=== PATIENT | female | born 1980 | race Caucasian/White ===

== ENCOUNTER 2017-03-03 04:46 | Inpatient (IN) | payer OTHER ==
[2017-03-03 05:26] LABS: APPEARANCE,URINE CLEAR; BILIRUBIN,URINE NEGATIVE (NEGATIVE); GLUCOSE, URINE NEGATIVE (NEGATIVE); KETONES,URINE NEGATIVE (NEGATIVE); LEUKOCYTE ESTERASE,URINE NEGATIVE (NEGATIVE); NITRITE,URINE NEGATIVE (NEGATIVE); PROTEIN,URINE NEGATIVE (NEGATIVE); URINE SPECIFIC GRAVITY 1.002; UROBILINOGEN,URINE NEGATIVE mg/dL (<2.0)
[2017-03-03] MEDS ORDERED: RINGERS SOLUTION,LACTATED 1,000 ML IV ONE (05:30)
[2017-03-03] MEDS ORDERED: RINGERS SOLUTION,LACTATED 1,000 ML IV PRN (05:30)
[2017-03-03 05:41] LABS: URINE BARBITURATES SCREEN NEGATIVE; URINE METHADONE SCREEN NEGATIVE; URINE OPIATES LOW NEGATIVE; URINE PHENCYCLIDINE SCREEN NEGATIVE
[2017-03-03 05:55] LABS: ABSOLUTE BASOPHILS # (AUTO) 0.1 10^3/uL (0.0-0.2); ABSOLUTE EOSINOPHILS # (AUTO) 0.1 10^3/uL (0.0-0.6); ABSOLUTE LYMPHOCYTES (AUTO) 1.8 10^3/uL (0.5-4.7); ABSOLUTE MONOCYTES (AUTO) 1.4 10^3/uL (0.1-1.4); ABSOLUTE NEUT (AUTO) 13.2 10^3/uL (1.7-8.2); BASOPHILS % (AUTO) 0.6 % (0-2); EOSINOPHILS % (AUTO) 0.8 % (0-6); HEMATOCRIT 37.3 % (36.0-47.0); HEMOGLOBIN 12.9 g/dL (12.0-15.5); HGB HCT DIFFERENCE 1.4; LYMPHOCYTES % (AUTO) 10.8 % (13-45); MEAN CORPUSCULAR HEMOGLOBIN 29.2 pg (27.0-33.4); MEAN CORPUSCULAR HGB CONC 34.7 g/dL (32.0-36.0); MEAN CORPUSCULAR VOLUME 84 fl (80-97); MONOCYTES % (AUTO) 8.2 % (3-13); RED BLOOD COUNT 4.43 10^6/uL (3.72-5.28); RED CELL DISTRIBUTION WIDTH 13.5 % (11.5-14.0); SEGMENTED NEUTROPHILS % (AUTO) 79.6 % (42-78); WHITE BLOOD COUNT 16.6 10^3/uL (4.0-10.5)
[2017-03-03] MEDS ORDERED: OXYTOCIN/NORMAL SALINE 1,000 ML IV PRN ×3 (09:44→20:56)
[2017-03-03] MEDS ORDERED: OXYTOCIN/NORMAL SALINE 0 UNIT/0 ML RTUINJ ONE (09:59)
--- NOTE | 2017-03-03 11:57 | Admission Physical ---
Datetime Report Generated by CPN: 03/03/2017 11:56 CURRENT ADMISSION Hx Assessment: The History has been Reviewed and is Current Chief Complaint: Suspected Ruptured Membranes Admit Plan: Admit to Unit ALLERGIES Medication Allergies: Sulfa (Sulfonamide Antibiotics)/SV/crawling sensat (04/03/2016) OBSTETRICAL HISTORY EDC: 03/03/2017 00:00 : 2 Para: 1 Term: 0 : 1 SAB: 0 IAB: 0 Ectopic: 0 Livin Cesareans: 0 VBACs: 0 Multiple Births: 0 Gestational Diabetes: No Rh Sensitization: No Incompetent Cervix: No TANG: No Infertility: No Uterine Anomaly: No IUGR: No Hx Previous C/S: No Macrosomia: No Hx Loss/Stillborn: No PIH: Yes Hx : No Placenta Previa/Abruption: No Depression/PP Depression: Yes PTL/PROM: No Post Hemorrhage: No Current Procedures: Ultrasound; NST Obstetrical History Comments: G1-2000 female @ 35 wks-4lbs 15 oz G2-Current MEDICAL HISTORY Diabetes: No Other Medical Diseases: Yes Medical History Comments: Hx: Depression-no meds; heart murmur with mild systolic click; Hx of Pre-E in first ; PHYSICAL EXAM General: Normal HEENT: Normal Neurologic: Normal Thyroid: Normal Heart: Normal Lungs: Normal Breast: Normal Back: Normal Abdomen: Normal Genitourinary Exam: Normal Extremities: Normal DTRs: Normal Pelvic Type: Adequate Physical Exam Comments: SVE was 350/-2 yesterday in clinic clear fluid since 0200 FETUS A Monitoring: External US FHR Category: Category I Presentation: Vertex Admit Comment: admit-offered pit augmentation if pt desires pain management per pt desire INFORMED CONSENT Signature: with User ID: [email or web address]
--- NOTE | 2017-03-03 12:47 | L&D Progress Notes ---
PROGRESS NOTES Datetime Report Generated by CPN: 03/03/2017 12:46 PROGRESS NOTE Impression: Rupture of Membranes Plan: Augmentation Vital Signs : Reviewed Comment: pit at 12 mu...cont augmentation FETUS A FHR Category: Category I Presentation: Vertex SIGNATURE SIGNATURE: [id number] Signature: with User ID: [email or web address]
[2017-03-03] MEDS ORDERED: ACETAMINOPHEN 325 MG TABLET PO ONE (13:21)
[2017-03-03] MEDS ORDERED: ACETAMINOPHEN 325 MG TABLET ONE (13:26)
[2017-03-03] MEDS ORDERED: AMPICILLIN SOD/SULBACTAM 3 GM VIAL ONE ×3 (13:26→19:03)
[2017-03-03] MEDS ORDERED: AMPICILLIN SOD/SULBACTAM 1.5 GM VIAL IV SCH (13:30)
[2017-03-03] MEDS ORDERED: FENTANYL CITRATE INJ/PF 100 MCG/2 ML AMPUL ONE (13:42)
[2017-03-03] MEDS ORDERED: MISOPROSTOL 0.2 MG TABLET ONE (13:42)
[2017-03-03] MEDS ORDERED: EPHEDRINE SULFATE INJ 50 MG/1 ML AMPULE ONE (13:42)
[2017-03-03] MEDS ORDERED: LIDOCAINE 1% INJ-PF (10 MG/ML) 30 ML SDV ONE (13:43)
[2017-03-03] MEDS ORDERED: PHENYLEPHRINE HCL INJ/PF 10 MG/1 ML SDV ONE (13:43)
[2017-03-03] MEDS ORDERED: BUPIVACAINE HCL 0.25 % INJ/PF (2.5 MG/1 ML) 30 ML VIAL ONE (13:43)
[2017-03-03] MEDS ORDERED: FENTANYL/BUPIVACAINE/NS/PF 200 MCG/100 ML RTUINJ EPI ONE (13:43)
--- NOTE | 2017-03-03 14:49 | L&D Progress Notes ---
PROGRESS NOTES Datetime Report Generated by CPN: 03/03/2017 14:49 PROGRESS NOTE Impression: Chorioamnionitis Plan Other: on IV unasyn now Informed Consent Obtained: Vaginal Delivery; Section Delivery; Vacuum/Forceps Assist; Risks, Benefits and Alternatives Discussed Comment: Pt spiked temp and developed tachycardia...started iv unasyn, tyelenol. Noemy Foster RN checked after epidural and making cervical change. Discussed r/b/a of if needed or vac assist. FETUS A FHR Comments: tachycarida FETUS C SIGNATURE: [id number] Signature: with User ID: [email or web address]
--- NOTE | 2017-03-03 16:34 | L&D Progress Notes ---
PROGRESS NOTES Datetime Report Generated by CPN: 03/03/2017 16:34 PROGRESS NOTE Impression: Non-reassuring Heart Rate Informed Consent Obtained: Section Delivery Comment: Pt now 7/100/0 to + 1 but straight op. Discussed given r/b/a of and pt consents. FETUS A Monitoring: External US FETUS C SIGNATURE: [id number] Signature: with User ID: [email or web address]
[2017-03-03] MEDS ORDERED: LIDOCAINE 2%/EPINEPHRINE INJ 20 ML VIAL ONE (16:37)
[2017-03-03] MEDS ORDERED: CITRIC ACID/SODIUM CITRATE ORAL SOLN 15 ML UDCUP ONE (16:37)
[2017-03-03] MEDS ORDERED: CEFAZOLIN 2 GM/D5W RTU 2 GM/50 ML RTUPB IV ONE (16:38)
[2017-03-03] MEDS ORDERED: SODIUM BICARBONATE 8.4% INJ 50 MEQ/50 ML DISP.SYRIN ONE (16:38)
[2017-03-03] MEDS ORDERED: ONDANSETRON HCL INJ/PF 4 MG/2 ML SDV ONE (16:46)
[2017-03-03] MEDS ORDERED: OXYTOCIN/NORMAL SALINE 20 UNIT/1,000 ML RTUINJ ONE ×2 (16:46→16:52)
[2017-03-03] MEDS ORDERED: MIDAZOLAM 2 MG/2 ML INJ ONE (16:46)
[2017-03-03] MEDS ORDERED: OXYTOCIN 10 UNIT/ML VIAL ONE (16:46)
[2017-03-03] MEDS ORDERED: METHYLERGONOVINE MALEATE INJ/PF 0.2 MG/1 ML AMPULE ONE (16:52)
[2017-03-03] MEDS ORDERED: MEPERIDINE HCL/PF INJ 25 MG/1 ML DISP.SYRIN ONE (17:07)
[2017-03-03] MEDS ORDERED: IBUPROFEN 800 MG TABLET ONE (17:20)
[2017-03-03] MEDS ORDERED: NALBUPHINE HCL INJ 10 MG/1 ML AMPULE ONE (17:22)
[2017-03-03] MEDS ORDERED: DIBUCAINE 1% OINTMENT 28 GM TP PRN ×2 (19:13→20:56)
[2017-03-03] MEDS ORDERED: BENZOCAINE/MENTHOL AEROSOL SPRAY 56 ML TOP PRN ×2 (19:13→20:56)
[2017-03-03] MEDS ORDERED: DIPH/PERTUSS(ACELL)/TETANUS VAC/PF 0.5 ML SYR (>=10YO) IM PRN ×2 (19:13→20:56)
[2017-03-03] MEDS ORDERED: ZOLPIDEM TARTRATE 5 MG TABLET PO PRN ×2 (19:13→20:56)
[2017-03-03] MEDS ORDERED: MEASLES,MUMPS&RUBELLA VACC/PF 0.5 ML VIAL SUBCUT PRN ×2 (19:13→20:56)
[2017-03-03] MEDS ORDERED: ACETAMINOPHEN WITH CODEINE #3 TABLET PO PRN ×4 (19:13→20:56)
--- NOTE | 2017-03-03 20:18 | Admission Physical ---
Datetime Report Generated by CPN: 03/03/2017 20:17 CURRENT ADMISSION Hx Assessment: The History has been Reviewed and is Current Chief Complaint: Suspected Ruptured Membranes Admit Plan: Admit to Unit ALLERGIES Medication Allergies: Yes Medication Allergies: Sulfa (Sulfonamide Antibiotics)/SV/crawling sensat (04/03/2016) Latex: No Latex Allergies OBSTETRICAL HISTORY EDC: 03/03/2017 00:00 : 2 Para: 1 Term: 0 : 1 SAB: 0 IAB: 0 Ectopic: 0 Livin Cesareans: 0 VBACs: 0 Multiple Births: 0 Gestational Diabetes: No Rh Sensitization: No Incompetent Cervix: No TANG: No Infertility: No ART Treatment: No Uterine Anomaly: No IUGR: No Hx Previous C/S: No Macrosomia: No Hx Loss/Stillborn: No PIH: Yes Hx : No Placenta Previa/Abruption: No Depression/PP Depression: Yes PTL/PROM: No Post Hemorrhage: No Current Procedures: Ultrasound; NST Obstetrical History Comments: G1-2000 female @ 35 wks-4lbs 15 oz G2-Current SEE RECORDS Alcohol: No Marijuana : No Cocaine: No Other Illicit Drugs: No Cigarettes: Former Smoker. [id number] MEDICAL HISTORY Diabetes: No Blood Transfusion: No Pulmonary Disease (Asthma, TB): No Breast Disease: No Hypertension: No Cap Cutter Surgery: No Heart Disease: No Hosp/Surgery: No Autoimmune Disorder: No Anesthetic Complications: No Kidney Disease: No Abnormal Pap Smear: No Neuro/Epilepsy: No Psychiatric Disorders: No Other Medical Diseases: Yes Hepatitis/Liver Disease: No Significant Family History: No Varicosities/Phlebitis: No Trauma/Violence : No Thyroid Dysfunction: No Medical History Comments: Hx: Depression-no meds; heart murmur with mild systolic click; Hx of Pre-E in first ; INFECTIOUS HISTORY Gonorrhea: No Genital Herpes: No Chlamydia: No Tuberculosis: No Syphilis: No Hepatitis: No HIV/AIDS Exposure: No Rash or Viral Illness: No HPV: No PHYSICAL EXAM General: Normal HEENT: Normal Neurologic: Normal Thyroid: Normal Heart: Normal Lungs: Normal Breast: Normal Back: Normal Abdomen: Normal Genitourinary Exam: Normal Extremities: Normal DTRs: Normal Pelvic Type: Adequate Physical Exam Comments: SVE was 3/50/-2 yesterday in clinic clear fluid since 0200 FETUS A EGA: 40.0 Monitoring: External US FHR Category: Category I Presentation: Vertex Admit Comment: admit-offered pit augmentation if pt desires pain management per pt desire PLANS FOR LABOR AND DELIVERY Labor and Delivery: None Pain Management: Natural; Epidural Feeding Preference: Breast Benefit of Breast Feed Discussed: Yes Circumcision: N/A INFORMED CONSENT Informed Consent Obtained: Section Delivery Informed Consent Obtained: Vaginal Delivery; Section Delivery; Vacuum/Forceps Assist; Risks, Benefits and Alternatives Discussed Signature: with User ID: [email or web address]
[2017-03-03] MEDS ORDERED: IBUPROFEN 800 MG TABLET PO SCH (22:00)
[2017-03-03] MEDS: IBUPROFEN 800 MG TABLET PO SCH (22:53)
[2017-03-04] MEDS ORDERED: MISOPROSTOL 0.2 MG TABLET PR ONE (00:45)
[2017-03-04] MEDS ORDERED: METHYLERGONOVINE MALEATE INJ/PF 0.2 MG/1 ML AMPULE IM ONE (00:45)
[2017-03-04] MEDS ORDERED: AMPICILLIN SOD/SULBACTAM 3 GM VIAL IV PRN (01:00)
[2017-03-04] MEDS: IBUPROFEN 800 MG TABLET PO SCH ×4 (03:37→21:11)
[2017-03-04] MEDS ORDERED: PRENATAL VITAMIN W-O CA NO5/FE FUMARATE/FA CAPSULE PO SCH (10:00)
[2017-03-04] MEDS: DOCUSATE SODIUM 100 MG CAPSULE PO SCH ×2 (10:00→18:00)
[2017-03-04] MEDS ORDERED: FERROUS SULFATE 325 MG TABLET PO SCH (10:00)
[2017-03-04] MEDS: SENNOSIDES/DOCUSATE 8.6-50 MG 1 EACH TABLET PO SCH (10:00)
[2017-03-04] MEDS: PRENATAL VITAMIN W-O CA NO5/FE FUMARATE/FA CAPSULE PO SCH (10:00)
[2017-03-04] MEDS ORDERED: DOCUSATE SODIUM 100 MG CAPSULE PO SCH (10:00)
[2017-03-04] MEDS: FERROUS SULFATE 325 MG TABLET PO SCH ×2 (10:00→18:00)
[2017-03-04] MEDS ORDERED: SENNOSIDES/DOCUSATE 8.6-50 MG 1 EACH TABLET PO SCH (10:00)
[2017-03-04] MEDS: AMPICILLIN SODIUM/SULBACTAM NA 3 GM in NORMAL SALINE 100 ML IV SCH ×2 (12:00→18:00)
[2017-03-05] MEDS: AMPICILLIN SODIUM/SULBACTAM NA 3 GM in NORMAL SALINE 100 ML IV SCH (00:22)
[2017-03-05] MEDS: IBUPROFEN 800 MG TABLET PO SCH ×3 (05:58→21:28)
[2017-03-05 07:14] LABS: ABSOLUTE BASOPHILS # (AUTO) 0.1 10^3/uL (0.0-0.2); ABSOLUTE EOSINOPHILS # (AUTO) 0.2 10^3/uL (0.0-0.6); ABSOLUTE LYMPHOCYTES (AUTO) 1.5 10^3/uL (0.5-4.7); ABSOLUTE MONOCYTES (AUTO) 0.7 10^3/uL (0.1-1.4); ABSOLUTE NEUT (AUTO) 16.8 10^3/uL (1.7-8.2); BASOPHILS % (AUTO) 0.3 % (0-2); EOSINOPHILS % (AUTO) 1.1 % (0-6); HEMATOCRIT 26.1 % (36.0-47.0); HGB HCT DIFFERENCE 0.6; LYMPHOCYTES % (AUTO) 7.7 % (13-45); MEAN CORPUSCULAR HEMOGLOBIN 29.5 pg (27.0-33.4); MEAN CORPUSCULAR HGB CONC 34.2 g/dL (32.0-36.0); MEAN CORPUSCULAR VOLUME 86 fl (80-97); MONOCYTES % (AUTO) 3.7 % (3-13); RED BLOOD COUNT 3.02 10^6/uL (3.72-5.28); RED CELL DISTRIBUTION WIDTH 14.1 % (11.5-14.0); SEGMENTED NEUTROPHILS % (AUTO) 87.2 % (42-78); WHITE BLOOD COUNT 19.3 10^3/uL (4.0-10.5)
[2017-03-05 07:48] LABS: HEMOGLOBIN 8.9 g/dL (12.0-15.5)
[2017-03-05 08:00] LABS: HEMATOCRIT 29.8 % (36.0-47.0); HGB HCT DIFFERENCE -0.4; MEAN CORPUSCULAR HEMOGLOBIN 28.6 pg (27.0-33.4); MEAN CORPUSCULAR HGB CONC 32.8 g/dL (32.0-36.0); MEAN CORPUSCULAR VOLUME 87 fl (80-97); RED BLOOD COUNT 3.41 10^6/uL (3.72-5.28); RED CELL DISTRIBUTION WIDTH 13.7 % (11.5-14.0); WHITE BLOOD COUNT 28.9 10^3/uL (4.0-10.5)
[2017-03-05] MEDS: DOCUSATE SODIUM 100 MG CAPSULE PO SCH ×2 (09:48→17:53)
[2017-03-05] MEDS: FERROUS SULFATE 325 MG TABLET PO SCH ×2 (09:49→17:53)
[2017-03-05] MEDS: PRENATAL VITAMIN W-O CA NO5/FE FUMARATE/FA CAPSULE PO SCH (09:49)
[2017-03-05] MEDS: SENNOSIDES/DOCUSATE 8.6-50 MG 1 EACH TABLET PO SCH (09:50)
--- NOTE | 2017-03-05 14:14 | PDOC PROGRESS REPORT ---
Subjective-OB Subjective: Post Delivery Day: 36 year old. Denies any needs at this time Sitting on side of bed, pain in abd improved, scant lochia, breast feeding, baby has bili later this afternoon, ambulating, family at BS, holding baby Physical Exam (OB) Vital Signs: Temp Pulse Resp BP Pulse Ox 98.2 F 80 15 122/70 100 03/05/17 11:44 03/05/17 11:44 03/05/17 11:44 03/05/17 11:44 03/05/17 11:44 Intake & Output 03/04/17 03/05/17 03/06/17 06:59 06:59 06:59 Intake Total 100 240 Balance 100 240 - Lochia Lochia Amount: Small 10-25 ml Lochia Color: Rubra/Red - Abdomen Description: Tender, Soft, Round Hernia Present: No Fundal Description: Firm, Midline Fundal Height: u/u - u/2 Objective-Diagnostic Laboratory: 03/05/17 07:03 03/05/17 07:03 WBC 19.3 H RBC 3.02 L Hgb 8.9 L D Hct 26.1 L MCV 86 MCH 29.5 MCHC 34.2 RDW 14.1 H Plt Count 239 Seg Neutrophils % 87.2 H Lymphocytes % 7.7 L Monocytes % 3.7 Eosinophils % 1.1 Basophils % 0.3 Absolute Neutrophils 16.8 H Absolute Lymphocytes 1.5 Absolute Monocytes 0.7 Absolute Eosinophils 0.2 Absolute Basophils 0.1 Assessment and Plan(PN) - Assessment and Plan (1) Vacuum extraction, delivered, current hospitalization Is this a current diagnosis for this admission?: Yes (2) Chorioamnionitis Qualifiers: Fetus number: single or unspecified fetus Is this a current diagnosis for this admission?: Yes (3) Advanced maternal age (AMA) in Is this a current diagnosis for this admission?: Yes - Time Spent with Patient Time with patient: Less than 15 minutes Medications reviewed and adjusted accordingly: Yes - Disposition Anticipated Discharge: Home Within: within 24 hours
[2017-03-05 14:20] LABS: HEMOGLOBIN 9.8 g/dL (12.0-15.5)
[2017-03-06] MEDS: IBUPROFEN 800 MG TABLET PO SCH (06:22)
[2017-03-06 08:05] LABS: HEMATOCRIT 25.9 % (36.0-47.0); HEMOGLOBIN 8.4 g/dL (12.0-15.5); HGB HCT DIFFERENCE -0.7; MEAN CORPUSCULAR HEMOGLOBIN 28.8 pg (27.0-33.4); MEAN CORPUSCULAR HGB CONC 32.6 g/dL (32.0-36.0); MEAN CORPUSCULAR VOLUME 88 fl (80-97); RED BLOOD COUNT 2.93 10^6/uL (3.72-5.28); RED CELL DISTRIBUTION WIDTH 14.1 % (11.5-14.0); WHITE BLOOD COUNT 12.9 10^3/uL (4.0-10.5)
--- NOTE | 2017-03-06 10:19 | PDOC PROGRESS REPORT ---
Subjective-OB Subjective: Post Delivery Day: 36 year old. Denies any needs at this time. Ready to go home. Physical Exam (OB) Vital Signs: Temp Pulse Resp BP Pulse Ox 98.4 F 67 18 123/79 100 03/06/17 07:22 03/06/17 07:22 03/06/17 07:22 03/06/17 07:22 03/06/17 07:22 Intake & Output 03/05/17 03/06/17 03/07/17 06:59 06:59 06:59 Intake Total 240 Balance 240 - Lochia Lochia Amount: Scant < 10 ml Lochia Color: Rubra/Red - Abdomen Description: Soft, Round Hernia Present: No Bowel Sounds: Normoactive Flatus Presence: Present Stool: Yes Fundal Description: Firm, Midline Fundal Height: u/u - u/2 Objective-Diagnostic Laboratory: 03/06/17 07:19 03/04/17 03/05/17 03/06/17 06:44 07:03 07:19 WBC 28.9 H 19.3 H 12.9 H RBC 3.41 L 3.02 L 2.93 L Hgb 9.8 L D 8.9 L 8.4 L Hct 29.8 L 26.1 L 25.9 L MCV 87 86 88 MCH 28.6 29.5 28.8 MCHC 32.8 34.2 32.6 RDW 13.7 14.1 H 14.1 H Plt Count 233 239 260 Seg Neutrophils % 87.2 H Lymphocytes % 7.7 L Monocytes % 3.7 Eosinophils % 1.1 Basophils % 0.3 Absolute Neutrophils 16.8 H Absolute Lymphocytes 1.5 Absolute Monocytes 0.7 Absolute Eosinophils 0.2 Absolute Basophils 0.1 Assessment and Plan(PN) - Time Spent with Patient Medications reviewed and adjusted accordingly: Yes - Disposition Anticipated Discharge: Home
--- NOTE | 2017-03-06 10:30 | PDOC DISCHARGE SUMMARY ---
Final Diagnosis Discharge Date: 03/06/17 - Final Diagnosis (1) Advanced maternal age (AMA) in Is this a current diagnosis for this admission?: Yes (2) Anemia, posthemorrhagic, acute Is this a current diagnosis for this admission?: Yes (3) Chorioamnionitis Is this a current diagnosis for this admission?: Yes (4) Vacuum extraction, delivered, current hospitalization Is this a current diagnosis for this admission?: Yes Discharge Data - Discharge Medication Home Medications: Ferrous Sulfate [Feosol 325 mg Tablet] 325 mg PO BID #60 tablet 03/06/17 Ibuprofen [Motrin 800 mg Tablet] 800 mg PO Q8 #20 tablet 03/06/17 Gestational Age: 490.0 wks Reason(s) for Admission: PROM Intrapartum Procedure(s): Spontaneous Vaginal Delivery - Data Baby 1 Female at 1 minute: 8 at 5 minutes: 8 Weight: 3.175 kg Home with Mother: Yes Complications: No - Diagnosis Test Laboratory: Temp Pulse Resp BP Pulse Ox 98.4 F 67 18 123/79 100 03/06/17 07:22 03/06/17 07:22 03/06/17 07:22 03/06/17 07:22 03/06/17 07:22 03/03/17 03/03/17 03/04/17 05:00 05:45 06:44 RBC 4.43 3.41 L Hgb 12.9 9.8 L D Hct 37.3 29.8 L Urine Opiates Screen NEGATIVE 03/05/17 03/06/17 07:03 07:19 RBC 3.02 L 2.93 L Hgb 8.9 L 8.4 L Hct 26.1 L 25.9 L Urine Opiates Screen - Discharge information/Instructions Discharge Activity: Activity As Tolerated, Balance Activity w/Rest, Pelvic Rest , Slowly Increase Activity, No tub bath Discharge Diet: Regular Disposition: HOME, SELF-CARE Follow up with: [facility] in: 4, Weeks
[2017-03-06] MEDS: DOCUSATE SODIUM 100 MG CAPSULE PO SCH (10:41)
[2017-03-06] MEDS: PRENATAL VITAMIN W-O CA NO5/FE FUMARATE/FA CAPSULE PO SCH (10:41)
[2017-03-06] MEDS: FERROUS SULFATE 325 MG TABLET PO SCH (10:42)
[2017-03-06] MEDS: SENNOSIDES/DOCUSATE 8.6-50 MG 1 EACH TABLET PO SCH (10:42)
[2017-03-06 11:03] VITALS: BP 129/75
--- NOTE | 2017-03-12 13:57 | Delivery Summary ---
Del Sum A-C Datetime Report Generated by CPN: 03/12/2017 13:57 DELIVERY PERSONNEL DELIVERY PERSONNEL: [phone] DELIVERY PERSONNEL: [phone] DELIVERY PERSONNEL: [phone] DELIVERY PERSONNEL: [phone] Delivery Doctor:: Rani Burnette MD Labor and Delivery Nurse:: MADELEINE Grey Labor and Delivery Nurse:: June Stanford RN Neonatal Nurse Practitioner:: MENA Alicia Nursery Nurse:: Marielena Lange RN MATERNAL INFORMATION Delivery Anesthesia: Epidural Medications After Delivery: Pitocin Bolus-Please Comment; Pitocin Drip 20 Units/1000ml NSS; Other-Please Comment Meds After Delivery Comment: Cytotec 1000mcg GA given by provider Estimated Blood Loss (ml): 250 Maternal Complications: Chorioamnionitis; Maternal Fever LABOR SUMMARY EDC: 03/03/2017 00:00 No. Babies in Womb: 1 Attempted: No Labor Anesthesia: Epidural LABOR INFORMATION Reason for Induction: Not Applicable Complete Dilatation: 03/03/2017 16:45 Oxytocin: Augmentation Group B Beta Strep: Negative Steroids Given: None Reason Steroids Not Administered: Not Applicable MEMBRANES Membranes Rupture Method: Spontaneous Rupture of Membranes: 03/03/2017 02:00 Length of Rupture (hr): 15.05 Amniotic Fluid Color: Clear Amniotic Fluid Amount: Small Amniotic Fluid Odor: Normal STAGES OF LABOR Stage 2 hr: 0 Stage 2 min: 18 Stage 3 hr: 0 Stage 3 min: 3 VAGINAL DELIVERY Episiotomy: None Laceration Extension: N/A Laceration Type: None Laceration Repair: Not Applicable Sharps Count Correct: N/A CSECTION DELIVERY Primary Indication: N/A Secondary Indication: N/A CSection Incidence: N/A Labor: N/A Elective: N/A CSection Incision: N/A BABY A INFORMATION Delivery Date/Time: 03/03/2017 17:03 Method of Delivery: Vaginal Method of Delivery: Vaginal Born in Route : No : N/A Forceps: N/A Vacuum Extraction: Successful ASSISTED DELIVERY BABY A Indication for Assisted Delivery: Non-reassuring FHTs Catheter Prior to Procedure: Yes Station Vacuum/Forcep Apply: +3 Position Vacuum/Forcep Apply: OA Vacuum Number of Pulls: 2 Vacuum Number of PopOffs: 0 Vacuum Maximum Pressure Obtained: 550 Reduce Pressure btwn Ctx: No Vacuum Outreach Liaison: Ki[place] Total Time Vacuum Applied: 2 minutes PRESENTATION/POSITION BABY A Presentation: Cephalic Presentation: Cephalic Cephalic Presentation: Vertex Vertex Position: OA Breech Presentation: N/A PLACENTA INFORMATION BABY A Placenta Delivery Time : 03/03/2017 17:06 Placenta Method of Delivery: Spontaneous Placenta Status: Delivered SCORES BABY A Heart Rate 1 min: >100 bpm Resp Effort 1 min: Good Cry Reflex Irritability 1 min: Cough or Sneeze or Pulls Away Muscle Tone 1 min: Active Motion Color 1 min: Blue/Pale SCORE 1 MIN: 8 Heart Rate 5 min: >100 bpm Resp Effort 5 min: Good Cry Reflex Irritability 5 min: Cough or Sneeze or Pulls Away Muscle Tone 5 min: Active Motion Color 5 min: Blue/Pale SCORE 5 MIN: 8 INFORMATION BABY A Gestational Age at Delivery: 40.0 Gestational Status: Full Term- 39- 40.6 Weeks Outcome : Liveborn Condition : Stable Sex: Female Sex: Female IDENTIFICATION BABY A Verification Date/Time: 03/03/2017 17:43 ID Band Number: [id number] Mother's Name Verified: Yes Infant RN Verifying : D Bellavance RNC/A Stanford RN WEIGHT/LENGTH BABY A Infant Birthweight (gm): 3170 Infant Weight (lb): 7 Infant Weight (oz): 0 Infant Length (in): 19.75 Infant Length (cm): 50.17 CORD INFORMATION BABY A No. Cord Vessels: 3 Nuchal Cord : Around Neck x1, Loose Cord Blood Taken: Yes-For Eval (Mom's Blood Type - or O+) Suction: Mouth; Nose ASSESSMENT BABY A Infant Complications: Extended Tachycardia; Multiple Variable Decels; Meconium Infant Complications- Other: terminal meconium Physical Findings at Delivery: Caput Succedaneum; Bruising Infant Respirations: Appears Normal Skin to Skin: Yes Skin to Skin: No (Annotations: unable to place skin to skin secondary to condition) Skin to Skin: Yes Skin to Skin Time (min): 20 Skin to Skin Time (min): 0 Follow Up Rep/ALS Called : No Care By: Tyler Lange RNC Transferred To: [facility] BABY B INFORMATION : N/A SIGNATURES Signature: with User ID: [email or web address]
--- NOTE | 2017-03-30 13:46 | Delivery Summary ---
Del Sum A-C Datetime Report Generated by CPN: 03/30/2017 13:45 DELIVERY PERSONNEL DELIVERY PERSONNEL: [phone] Delivery Doctor:: Rani Burnette MD Labor and Delivery Nurse:: MADELEINE Grey Labor and Delivery Nurse:: June Stanford RN Neonatal Nurse Practitioner:: MENA Alicia Nursery Nurse:: Marielena Lange RN MATERNAL INFORMATION Delivery Anesthesia: Epidural Medications After Delivery: Pitocin Bolus-Please Comment; Pitocin Drip 20 Units/1000ml NSS; Other-Please Comment Meds After Delivery Comment: Cytotec 1000mcg DE given by provider Estimated Blood Loss (ml): 250 Maternal Complications: Chorioamnionitis; Maternal Fever LABOR SUMMARY EDC: 03/03/2017 00:00 No. Babies in Womb: 1 Attempted: No Labor Anesthesia: Epidural LABOR INFORMATION Reason for Induction: Not Applicable Complete Dilatation: 03/03/2017 16:45 Oxytocin: Augmentation Group B Beta Strep: Negative Steroids Given: None Reason Steroids Not Administered: Not Applicable MEMBRANES Membranes Rupture Method: Spontaneous Rupture of Membranes: 03/03/2017 02:00 Length of Rupture (hr): 15.05 Amniotic Fluid Color: Clear Amniotic Fluid Amount: Small Amniotic Fluid Odor: Normal STAGES OF LABOR Stage 2 hr: 0 Stage 2 min: 18 Stage 3 hr: 0 Stage 3 min: 3 VAGINAL DELIVERY Episiotomy: None Laceration Extension: N/A Laceration Type: None Laceration Repair: Not Applicable Sharps Count Correct: N/A CSECTION DELIVERY Primary Indication: N/A Secondary Indication: N/A CSection Incidence: N/A Labor: N/A Elective: N/A CSection Incision: N/A BABY A INFORMATION Infant Delivery Date/Time: 03/03/2017 17:03 Method of Delivery: Vaginal Born in Route : No : N/A Forceps: N/A Vacuum Extraction: Successful ASSISTED DELIVERY BABY A Indication for Assisted Delivery: Non-reassuring FHTs Catheter Prior to Procedure: Yes Station Vacuum/Forcep Apply: +3 Position Vacuum/Forcep Apply: OA Vacuum Number of Pulls: 2 Vacuum Number of PopOffs: 0 Vacuum Maximum Pressure Obtained: 550 Reduce Pressure btwn Ctx: No Vacuum Ski Production Supervisor: Ki[place] Total Time Vacuum Applied: 2 minutes PRESENTATION/POSITION BABY A Presentation: Cephalic Cephalic Presentation: Vertex Vertex Position: OA Breech Presentation: N/A PLACENTA INFORMATION BABY A Placenta Delivery Time : 03/03/2017 17:06 Placenta Method of Delivery: Spontaneous Placenta Status: Delivered SCORES BABY A Heart Rate 1 min: >100 bpm Resp Effort 1 min: Good Cry Reflex Irritability 1 min: Cough or Sneeze or Pulls Away Muscle Tone 1 min: Active Motion Color 1 min: Blue/Pale SCORE 1 MIN: 8 Heart Rate 5 min: >100 bpm Resp Effort 5 min: Good Cry Reflex Irritability 5 min: Cough or Sneeze or Pulls Away Muscle Tone 5 min: Active Motion Color 5 min: Blue/Pale SCORE 5 MIN: 8 INFORMATION BABY A Gestational Age at Delivery: 40.0 Gestational Status: Full Term- 39- 40.6 Weeks Outcome : Liveborn Infant Condition : Stable Sex: Female IDENTIFICATION BABY A Verification Date/Time: 03/03/2017 17:43 ID Band Number: [id number] Mother's Name Verified: Yes Infant RN Verifying : D Bellavance RNC/A Stanford RN WEIGHT/LENGTH BABY A Birthweight (gm): 3170 Infant Weight (lb): 7 Infant Weight (oz): 0 Infant Length (in): 19.75 Infant Length (cm): 50.17 CORD INFORMATION BABY A No. Cord Vessels: 3 Nuchal Cord : Around Neck x1, Loose Cord Blood Taken: Yes-For Eval (Mom's Blood Type - or O+) Suction: Mouth; Nose ASSESSMENT BABY A Infant Complications: Extended Tachycardia; Multiple Variable Decels; Meconium Infant Complications- Other: terminal meconium Physical Findings at Delivery: Caput Succedaneum; Bruising Infant Respirations: Appears Normal Skin to Skin: Yes Skin to Skin Time (min): 20 Skip Hoist Operator/ALS Called : No Infant Care By: Tyler Lange RNAlejandra Transferred To: [facility] BABY B INFORMATION : N/A SIGNATURES Signature: with User ID: [email or web address]
== END 2017-03-06 11:28 | disposition home or self-care (01) | DRG 774 ==
LOC: LC 04:46 → EEVIPCON 05:31 → LR 05:31 → 2S 20:15
PROVIDERS: ADMIT Specialist; ATTEND Specialist
PROC: 10D07Z6 Extraction of Products of Conception, Vacuum, Via Natural or Artificial Opening (ICD-10-PCS; principal; 2017-03-03)
PROC: 4A1HXCZ Monitoring of Products of Conception, Cardiac Rate, External Approach (ICD-10-PCS; 2017-03-03)
DX: O41.1230 Chorioamnionitis, third trimester, not applicable or unspecified (principal); O75.2 Pyrexia during labor, not elsewhere classified; D62 Acute posthemorrhagic anemia; O99.02 Anemia complicating childbirth; O99.344 Other mental disorders complicating childbirth; O69.81X0 Labor and delivery complicated by cord around neck, without compression, not applicable or unspecified; F32.9 Major depressive disorder, single episode, unspecified; Z3A.40 40 weeks gestation of pregnancy; Z37.0 Single live birth; Z88.2 Allergy status to sulfonamides; Z87.891 Personal history of nicotine dependence
CPT/HCPCS: 36415; 80307; 81005; 85025; 85027; 86592; 86850; 86900; 86901; 94760; J0295; J0690; J2175; J2210; J2250; J2300; J2370; J2405; J2590; J3010; J3490

== ENCOUNTER → 2017-10-26 | Outpatient (CLI) | payer BC | LOC: LAB 12:19 → EEVIPCON 12:19 | PROVIDERS: ATTEND Obstetrics & Gynecology | DX: N91.2 Amenorrhea, unspecified (principal) | CPT/HCPCS: 36415; 84702 ==

== ENCOUNTER 2018-03-04 05:51 | Day surgery (SDC) | payer BC ==
[2018-02-26 12:45] LABS: HEMATOCRIT 43.1 % (36.0-47.0); HEMOGLOBIN 14.6 g/dL (12.0-15.5); MEAN CORPUSCULAR HEMOGLOBIN 29.5 pg (27.0-33.4); MEAN CORPUSCULAR HGB CONC 33.8 g/dL (32.0-36.0); MEAN CORPUSCULAR VOLUME 87 fl (80-97); PLATELET COUNT 258 10^3/uL (150-450); RED BLOOD COUNT 4.95 10^6/uL (3.72-5.28); RED CELL DISTRIBUTION WIDTH 12.7 % (11.5-14.0); WHITE BLOOD COUNT 3.5 10^3/uL (4.0-10.5)
[2018-02-26 12:46] LABS: APPEARANCE,URINE CLEAR; BILIRUBIN,URINE NEGATIVE (NEGATIVE); COLOR,URINE STRAW; GLUCOSE, URINE NEGATIVE (NEGATIVE); KETONES,URINE NEGATIVE (NEGATIVE); LEUKOCYTE ESTERASE,URINE NEGATIVE (NEGATIVE); NITRITE,URINE NEGATIVE (NEGATIVE); PROTEIN,URINE NEGATIVE (NEGATIVE); URINE SPECIFIC GRAVITY 1.002; UROBILINOGEN,URINE NEGATIVE mg/dL (<2.0)
[~2018-03-04 05:51] MED LIST: LACTATED RINGERS 1000 ML IV PRN
[2018-03-04] MEDS ORDERED: EPHEDRINE SULFATE INJ 50 MG/1 ML AMPULE ONE (07:00)
[2018-03-04] MEDS ORDERED: ONDANSETRON HCL INJ/PF 4 MG/2 ML SDV ONE ×2 (07:00→10:42)
[2018-03-04] MEDS ORDERED: HYDROMORPHONE HCL INJ/PF 2 MG/ML AMPULE ONE (07:00)
[2018-03-04] MEDS ORDERED: FENTANYL CITRATE INJ/PF 100 MCG/2 ML AMPUL ONE (07:00)
[2018-03-04] MEDS ORDERED: MIDAZOLAM 2 MG/2 ML INJ ONE (07:00)
[2018-03-04] MEDS ORDERED: PROPOFOL INJ 200 MG/20 ML VIAL IV ONE (07:01)
[2018-03-04] MEDS ORDERED: DEXAMETHASONE SOD PHOSPHATE INJ 4 MG/1 ML VIAL ONE (07:44)
[2018-03-04] MEDS ORDERED: ROCURONIUM BROMIDE INJ 50 MG/5 ML VIAL IV ONE (07:44)
[2018-03-04] MEDS ORDERED: GLYCOPYRROLATE INJ 0.4 MG/2 ML VIAL ONE (07:44)
[2018-03-04] MEDS ORDERED: NEOSTIGMINE METHYLSULFATE 10 MG/10 ML VIAL ONE (07:44)
[2018-03-04] MEDS ORDERED: MEPERIDINE HCL/PF INJ 25 MG/1 ML DISP.SYRIN IV PRN (07:47)
[2018-03-04] MEDS ORDERED: FENTANYL CITRATE INJ/PF 100 MCG/2 ML AMPUL IV PRN ×3 (07:47)
[2018-03-04] MEDS ORDERED: DIPHENHYDRAMINE HCL 50 MG/ML VIAL IV PRN (07:47)
[2018-03-04] MEDS ORDERED: PROMETHAZINE HCL INJ 25 MG/1 ML VIAL IV PRN (07:47)
[2018-03-04] MEDS ORDERED: KETOROLAC TROMETHAMINE INJ/PF 30 MG/1 ML SDV ONE (08:49)
[2018-03-04] MEDS: FENTANYL CITRATE INJ/PF 100 MCG/2 ML AMPUL ONE ×3 (08:49→08:59)
[2018-03-04] MEDS ORDERED: ACETAMINOPHEN 100 ML IV ONE (08:49)
[2018-03-04] MEDS ORDERED: MORPHINE SULFATE 10 MG/ML INJ IM PRN (08:55)
[2018-03-04] MEDS ORDERED: IBUPROFEN 800 MG TABLET PO PRN (08:55)
[2018-03-04] MEDS ORDERED: OXYCODONE-ACETAMINOPHEN 5-325 MG TABLET PO PRN ×2 (08:55→08:56)
[2018-03-04] MEDS ORDERED: HYDROCODONE/ACETAMINOPHEN 5-325 MG TABLET ONE (09:30)
[2018-03-04] MEDS ORDERED: HYDROCODONE/ACETAMINOPHEN 5-325 MG TABLET PO PRN ×2 (09:40)
--- NOTE | 2018-03-04 10:11 | OPERATIVE REPORT E ---
Operative Report NAME: CHRISTOPHER NUR : 1980 AGE: 37Y DATE OF SURGERY: 03/04/2018 ROOM: PREOPERATIVE DIAGNOSES: 1. Undesired fertility, abnormal uterine bleeding, menorrhagia. 2. Anemia. POSTOPERATIVE DIAGNOSES: 1. Undesired fertility, abnormal uterine bleeding, menorrhagia. 2. Anemia. OPERATION: Hysteroscope, dilation and curettage with Novasure and laparoscopic bilateral salpingectomy. SURGEON: KENISHA KNOWLES M.D. ANESTHESIA: Dr. Aleman with General. FINDINGS: The uterus had sounded to 8.5 cm with a cervical length of 2 cm, cervical width of 4.5 cm. Burn time of 2 minutes. Normal uterus, tubes and ovaries noted on laparoscopy. COMPLICATIONS: None. ESTIMATED BLOOD LOSS: 50 mL. SPECIMENS REMOVED: Endometrial curettings and bilateral fallopian tubes. PROCEDURE: The patient was taken to the operating room, prepared and draped in normal sterile fashion in the dorsal lithotomy position. Under sterile conditions, an in and out catheter was performed with approximately 20 mL of clear urine. The sterile speculum was placed into the vagina and the anterior lip of the cervix was grasped with a single-tooth tenaculum. The uterus was then sounded to the above findings. The cervix was then dilated to accommodate the hysteroscope. A Kevorkian curette was introduced first and a mild curettage was performed. This sample was passed off the field for pathology. The hysteroscope was then introduced and the endometrial cavity was inspected with no evidence of perforation. A Novasure device was then inserted with the above settings in place and the Novasure device was then fired without difficulty. This was then removed and the hysteroscope was reintroduced and a good armaan of the endometrial lining was noted at the end of this procedure. Instruments were removed and the Hulka clamp then replaced the single-tooth tenaculum for uterine manipulation. Gloves were changed and attention was turned to the upper portion of the case where an umbilical skin incision was made with the scalpel and a Veress needle was introduced. Peritoneal cavity placement was confirmed by free flow of sterile water through the Veress needle and an opening pressure of 1 mmHg with insufflation. The abdomen was insufflated with approximately 2 l of CO2 gas and the Veress needle was removed. The 5 mm trocar was then placed through this incision. The camera was introduced. The peritoneal cavity was inspected and the patient was placed in steep Trendelenburg. Under direct visualization, two more 5 mm ports were placed one on either lower quadrant. The left fallopian tube was then grasped with an atraumatic grasper and the LigaSure device was introduced the device was used to remove the left fallopian tube starting at the fimbriated end and working to the fundus of the uterus. The fallopian tube once it was freed was then removed through the trocar without difficulty. This procedure was repeated on the right fallopian tube without difficulty. After the right fallopian tube was then removed, a picture was taken of the uterus and ovaries to confirm sterilization. The lower trocars were then removed under direct visualization. The abdomen was deflated the umbilical trocar. The patient was taken out of Trendelenburg and this trocar was then removed. The three incisions were then closed with 4-0 Vicryl. The patient tolerated the procedure well. Sponge, lap and needle counts were correct x2 and the patient was taken to the recovery room in stable condition. DICTATING PHYSICIAN: KENISHA KNOWLES M.D. [id number] Y#: [id number] ID: [id number] JOB#: [id number] ACCT: [id number] cc:KNEISHA KNOWLES M.D. >
[2018-03-04] MEDS ORDERED: PROMETHAZINE HCL INJ 25 MG/1 ML VIAL ONE (11:14)
[2018-03-04] MEDS ORDERED: SCOPOLAMINE HYDROBROMIDE 1.5 MG PATCH.TD72 ONE (11:15)
[2018-03-04] MEDS ORDERED: DEXAMETHASONE SOD PHOS INJ 10 MG/1 ML VIAL ONE (11:15)
[2018-03-04 12:43] VITALS: BP 145/89
== END 2018-03-04 12:15 | disposition home or self-care (01) ==
LOC: OROUT 05:51
PROVIDERS: ATTEND Obstetrics & Gynecology
DX: Z30.2 Encounter for sterilization (principal); N93.9 Abnormal uterine and vaginal bleeding, unspecified; N92.0 Excessive and frequent menstruation with regular cycle; N83.8 Other noninflammatory disorders of ovary, fallopian tube and broad ligament; N92.1 Excessive and frequent menstruation with irregular cycle; D64.9 Anemia, unspecified; Z87.891 Personal history of nicotine dependence; Z79.899 Other long term (current) drug therapy; Z88.2 Allergy status to sulfonamides
CPT/HCPCS: 36415; 85027; 81005; 81025; 88302 ×2; 88305 ×2; 58661; 58563; J2250; J3490 ×2; J1100 ×2; J3010; J1885; J1170; J2550; J2405; J2704; J0131; 840

== ENCOUNTER → 2019-09-29 | Outpatient (CLI) | payer BC ==
--- NOTE | 2019-09-29 13:54 | WOMENS IMAGING REPORT ---
EXAM DESCRIPTION: BILAT SCREENING MAMMO W/CAD COMPLETED DATE/TIME: 09/29/2019 12:02 pm REASON FOR STUDY: ROUTINE SCREENING MAMMOGRAM Z12.31Z12.31 ENCNTR SCREEN MAMMOGRAM FOR MALIGNANT NE OPLASM OF SAVAGE COMPARISON: None. EXAM PARAMETERS: Standard craniocaudal and mediolateral oblique views of each breast recorded using digital acquisition. Read with the assistance of CAD. .[facility] - [employer] Techn[employer] Version 9.2 LIMITATIONS: None. FINDINGS: RIGHT BREAST MASSES: No suspicious masses. CALCIFICATIONS: No new or suspicious calcifications. ARCHITECTURAL DISTORTION: None. ASYMMETRY: Focal asymmetry in the central breast, visualized on the CC image, located 3 cm from the n ipple. OTHER: No other significant findings. LEFT BREAST MASSES: No suspicious masses. CALCIFICATIONS: No new or suspicious calcifications. ARCHITECTURAL DISTORTION: None. ASYMMETRY: Focal asymmetry in the far medial breast, visualized on the CC image, located 10 cm from t he nipple. OTHER: No other significant findings. IMPRESSION: Focal asymmetries in both breasts. 0 Incomplete: Needs Additional Imaging Evaluation and/or prior Mammograms for Comparison. BREAST DENSITY: d. The breasts are extremely dense, which lowers the sensitivity of mammography. BIRAD: ASSESSMENT: 0 Incomplete: Needs Additional Imaging Evaluation and/or prior Mammograms for C omparison. RECOMMENDATION: RECOMMENDED FOLLOW-UP: Recommend additional evaluation with breast tomosynthesis (pr eferred) or compression views of both breasts and ultrasound of both breasts. The patient will be contacted for additional imaging. COMMENT: The patient has been notified of the results by letter per MQSA requirements. Additional no tification policies are in place for contacting patient with suspicious or incomplete findings. Quality ID #225: The [employer] recommends an annual screening mammogram for women aged 40 years or over. This facility utilizes a reminder system to ensure that all patients receive reminder letters, and/or direct phone calls for appointments. This includes reminders for routine scr eening mammograms, diagnostic mammograms, or other Breast Imaging Interventions when appropriate. Th is patient will be placed in the appropriate reminder system. TECHNICAL DOCUMENTATION: FINDING NUMBER: (1) ASSESSMENT: (1) JOB ID: [id number] [employer]- All Rights Reserved Reading location - IP/workstation name: [email or web address]
== END ==
LOC: WI 12:05
PROVIDERS: ATTEND Obstetrics & Gynecology
DX: Z12.31 Encounter for screening mammogram for malignant neoplasm of breast (principal); N64.89 Other specified disorders of breast
CPT/HCPCS: 77067

== ENCOUNTER → 2020-10-06 | Outpatient (CLI) | payer BC ==
[~2020-10-06] MED LIST changes: +COVID-19 VACCINE (PFIZER)/PF 30 MCG/0.3 ML VIAL IM ONE; +EPINEPHRINE INJ/PF 1 MG/1 ML AMPULE IM PRN; -LACTATED RINGERS 1000 ML IV PRN
== END ==
LOC: EMPHEALTH 08:48
PROVIDERS: ATTEND Internal Medicine
DX: Z23 Encounter for immunization (principal)
CPT/HCPCS: 91300

== ENCOUNTER → 2020-10-27 | Outpatient (CLI) | payer BC | LOC: EMPHEALTH 08:56 | PROVIDERS: ATTEND Internal Medicine | DX: Z23 Encounter for immunization (principal) | CPT/HCPCS: 91300 ==